=== PATIENT | female | born 1945 | race Caucasian/White ===

== ENCOUNTER 2017-02-10 12:36 | Emergency (ER) | payer MEDICARE, OTHER ==
[~2017-02-10] VITALS: Ht 167.6 cm; Wt 95.0 kg
[2017-02-10 12:49] VITALS: BP 134/85; PULSE 87; RESP 18; TEMP 97.4; O2SAT 97
--- NOTE | 2017-02-10 14:35 | PD ---
HPI . right foot pain for 3 weeks and right leg/knee pain for 3 mts Chief Complaint: Pain: Acute or Chronic Time Seen by Provider: 14:42 Travel History International Travel<30 days: No Contact w/Intl Traveler<30days: No Traveled to known affect area: No History of Present Illness HPI 71-year-old female with history of diabetes here with complaints of right foot pain and right leg pain. Patient tells me that she has been having some foot pain and was told that she likely has plantar fasciitis. She did make an appointment with pipe assembly worker, but there were some issues with her insurance and she was not able to keep the appointment. Today she is here seeking some type of relief for her foot pain. She thinks that the pain is now getting to the point where it is causing her issues in her knee because she is having to adjust the way that she is walking. She has tried stretching exercises without any relief. She did buy some type of pain relief bracelet to the pain away in her knee, but now it seems to be returning since her foot is aggravated. She does have a history of osteoarthritis. She has no complaints of chest pain, nausea, vomiting, shortness of breath or leg edema. PFSH Past Medical History Hx Anticoagulant Therapy: Yes (asa 81mg) Cardiovascular Problems: Yes Diabetes: Yes Respiratory: Yes ?: Not Social History Tobacco Use: No Allergies-Medications (Allergen,Severity, Reaction): Coded Allergies: No Known Allergies (Unverified , 02/10/17) Reported Meds & Prescriptions Reported Meds & Active Scripts Active Active Prescriptions or Reported Medications Unobtainable Review of Systems General / Constitutional: No: Fever Eyes: No: Visual changes HENT: No: Headaches Cardiovascular: No: Chest Pain or Discomfort Respiratory: No: Shortness of Breath Gastrointestinal: No: Abdominal Pain Genitourinary: No: Dysuria Musculoskeletal: Positive: Pain (right heel/foot/ leg/knee ) Skin: No Rash Neurologic: No: Weakness Psychiatric: No: Depression Endocrine: No: Polydipsia Hematologic/Lymphatic: No: Easy Bruising Physical Exam Narrative GENERAL: AAO x 3, no acute distress, Well-nourished, well-developed patient. SKIN: Warm and dry. No visible rashes or bruising. Dry skin to bottom of b/l feet R>L, no open wounds. no abn with plantar aspect of foot HEAD: Normocephalic and atraumatic. EYES: No scleral icterus. No injection or drainage. ENT: No nasal drainage noted. Mucous membranes pink. Airway patent. NECK: Supple, trachea midline. No JVD. CARDIOVASCULAR: Regular rate and rhythm without murmurs, gallops, or rubs. RESPIRATORY: Breath sounds equal bilaterally. No accessory muscle use. No rhonchi or rales. GASTROINTESTINAL: Abdomen soft, non-tender, nondistended. EXTREMITIES: No cyanosis or edema. + crepitus b/l knee R>L, normal ROM, no edema. no temperature difference. BACK: Nontender without obvious deformity. No CVA tenderness. PSYCH: AAO x 3, normal affect. Data Data Last Documented VS Vital Signs Date Time Temp Pulse Resp B/P Pulse Ox O2 Delivery O2 Flow Rate FiO2 02/10/17 12:49 97.4 87 18 134/85 97 MDM Medical Decision Making Medical Screen Exam Complete: Yes Emergency Medical Condition: Yes Medical Record Reviewed: Yes Differential Diagnosis Plantar fasciitis, acute on chronic knee pain, osteoporosis, rheumatoid arthritis Narrative Course 71-year-old female with history of diabetes here with complaints of right foot pain and right leg pain. Patient tells me that she has been having some foot pain and was told that she likely has plantar fasciitis. She did make an appointment with pipe assembly worker, but there were some issues with her insurance and she was not able to keep the appointment. Today she is here seeking some type of relief for her foot pain. She thinks that the pain is now getting to the point where it is causing her issues in her knee because she is having to adjust the way that she is walking. She has tried stretching exercises without any relief. She did buy some type of pain relief bracelet to the pain away in her knee, but now it seems to be returning since her foot is aggravated. She does have a history of osteoarthritis. She has no complaints of chest pain, nausea, vomiting, shortness of breath or leg edema. Patient seen and examined. She does not have any acute findings on examination. Discussed plantar fasciitis and modalities of treatment. Advised that she will need to seek the help of a pipe assembly worker. Recommend [id number] NSAIDs, but patient states that she's had histories with ulcers in the past. Advised caution with usage. Advised that she could try Tylenol arthritis. Unfortunately in the emergency department there is not much that I can provide for her. Recommend orthotics and supportive shoes. Patient verbalized understanding of instructions, questions were answered, and thanked me for their care. I advised them if their condition worsens, please return to the nearest emergency room for further care. Diagnosis Primary Impression: Plantar fasciitis of right foot Additional Impression: Knee pain, chronic Qualified Code: M25.561 - Chronic pain of right knee Referrals: Chief Revenue Officer Patient Instructions: General Instructions, Knee Pain (ED), Plantar Fasciitis ( ED) Additional Instructions: Please seek the help of a pipe assembly worker. Please return to emergency department if your symptoms return or worsen. Follow up with your primary care provider. Try [id number] NSAIDs sparingly. Med/Other Pt SpecificInfo: No Change to Meds Scripts Unable to Obtain Active Prescriptions or Reported Meds Disposition: 01 DISCHARGE HOME Condition: Stable Sara Badillo Feb 10, 2017 14:35
[2017-02-10] MEDS ORDERED: methylPREDNISolone SOD SUCC 125 MG/2 ML VIAL IM ONE (15:45)
== END 2017-02-10 15:31 | disposition home or self-care (01) ==
LOC: PHED 12:36 → PHEFT 15:31
DX: M72.2 Plantar fascial fibromatosis (principal); E11.9 Type 2 diabetes mellitus without complications; M19.90 Unspecified osteoarthritis, unspecified site; Z79.82 Long term (current) use of aspirin; M25.561 Pain in right knee
CPT/HCPCS: 99283

== ENCOUNTER 2017-03-22 11:56 | Emergency (ER) | payer MEDICARE ==
[~2017-03-22] VITALS: Ht 165.1 cm; Wt 96.0 kg
[2017-03-22 11:58] VITALS: BP 162/95; PULSE 100; RESP 16; TEMP 98.1; O2SAT 94
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
[2017-03-22] MEDS ORDERED: PRAV10TA PO (12:07)
[2017-03-22] MEDS ORDERED: ATEN25TA PO (12:07)
[2017-03-22] MEDS ORDERED: INSU100V SQ ×2 (12:07)
[2017-03-22] MEDS ORDERED: OMEP20TA PO (12:07)
[2017-03-22] MEDS ORDERED: LEVO25TA39 PO (12:07)
[2017-03-22] MEDS ORDERED: PROPARACAINE HCL 0.5% OPHT SOLN 15 ML BTL EACH EYE ONE (12:15)
[2017-03-22] MEDS ORDERED: FLUORESCEIN SOD 1 MG STRIP EACH EYE ONE (12:15)
[2017-03-22] MEDS ORDERED: TETANUS/DIPHTHERIA TOXOID ADULT 0.5 ML VIAL IM ONE (12:45)
[2017-03-22] MEDS ORDERED: PRED1SUS RIGHT EYE (14:50)
== END 2017-03-22 13:38 | disposition home or self-care (01) ==
LOC: PHEFT 11:56
DX: H57.11 Ocular pain, right eye (principal); T63.791A Toxic effect of contact with other venomous plant, accidental (unintentional), initial encounter; T15.91XA Foreign body on external eye, part unspecified, right eye, initial encounter; E11.9 Type 2 diabetes mellitus without complications; Z79.82 Long term (current) use of aspirin; Z23 Encounter for immunization; Y92.017 Garden or yard in single-family (private) house as the place of occurrence of the external cause; X58.XXXA Exposure to other specified factors, initial encounter
CPT/HCPCS: 90471; 90714